=== PATIENT | female | born 1935 | race Caucasian/White ===

== ENCOUNTER → 2016-09-28 | Outpatient (CLI) | payer MEDICARE ==
--- NOTE | 2016-09-28 16:26 | RAD ---
DATE: 09/28/2016 EXAM: DIGITAL SCREEN BILAT W/CAD HISTORY: Screening study. COMPARISON: 04/29/2015 This study was interpreted with the benefit of Computerized Aided Detection (CAD). FINDINGS: Digital MLO and CC mammograms of both breasts were obtained. Comparison study is dated 04/29/2015. The breast parenchyma is heterogeneously dense which can obscure a lesion on mammography (breast density code C). Benign-appearing and vascular calcifications are seen scattered throughout both breasts. No spiculated mass is seen. No malignant appearing calcification or area of architectural distortion is noted. Since the previous examination there has been no significant interval change. IMPRESSION: BI-RADS Category 2 benign findings. There is no mammographic evidence of malignancy. Routine yearly screening mammography is recommended for follow-up. BI-RADS CATEGORY: 2 BENIGN FINDING(S) RECOMMENDED FOLLOW-UP: 12M 12 MONTH FOLLOW-UP PQRS compliance statement: Patient information was entered into a reminder system with a target due date 09/28/2017 for the next mammogram. Mammography is a sensitive method for finding small breast cancers, but it does not detect them all and is not a substitute for careful clinical examination. A negative mammogram does not negate a clinically suspicious finding and should not result in delay in biopsying a clinically suspicious abnormality. "Our facility is accredited by the [employer] Mammography [employer]."
== END | disposition home or self-care (01) ==
LOC: MAMMO 14:19
PROVIDERS: ATTEND Family Medicine
DX: Z12.31 Encounter for screening mammogram for malignant neoplasm of breast (principal)
CPT/HCPCS: G0202; 77067

== ENCOUNTER → 2017-09-30 | Outpatient (CLI) | payer MEDICARE | END | disposition home or self-care (01) | LOC: MAMMO 13:35 | DX: Z12.31 Encounter for screening mammogram for malignant neoplasm of breast (principal) | CPT/HCPCS: 77063; 77067 ==

== ENCOUNTER → 2018-10-11 | Outpatient (CLI) | payer MEDICARE ==
--- NOTE | 2018-10-11 14:19 | RAD ---
DATE: 10/11/2018 EXAM: MAMMO [place] SCREENING BILATERAL HISTORY: Routine screening. COMPARISON: Previous mammogram from 2018 and 2017. This study was interpreted with the benefit of Computerized Aided Detection (CAD). FINDINGS: Breast Density: SCATTERED The breast parenchyma shows scattered fibroglandular densities. Breast parenchyma level B. The skin and nipples are within normal limits. No suspicious calcifications, spiculated mass or area of architectural distortion. Benign-appearing bilateral vascular calcifications. Stable round mass at 6:00 position in the left breast dating back to 2017 mammogram and is most likely benign given interval stability. IMPRESSION: No mammographic evidence of malignancy. Stable mammogram. BI-RADS CATEGORY: 2 BENIGN FINDING(S) RECOMMENDED FOLLOW-UP: 12M 12 MONTH FOLLOW-UP PQRS compliance statement: Patient information was entered into a reminder system with a target due date for the next mammogram. Mammography is a sensitive method for finding small breast cancers, but it does not detect them all and is not a substitute for careful clinical examination. A negative mammogram does not negate a clinically suspicious finding and should not result in delay in biopsying a clinically suspicious abnormality. "Our facility is accredited by the [employer] Mammography [employer]."
== END | disposition home or self-care (01) ==
LOC: MAMMO 10:13
PROVIDERS: ATTEND Family Medicine
DX: Z12.31 Encounter for screening mammogram for malignant neoplasm of breast (principal)
CPT/HCPCS: 77063; 77067